=== PATIENT | male | born 2000 | race Caucasian/White ===

== ENCOUNTER 2021-07-30 18:08 | Inpatient (IN) | payer OTHER ==
[~2021-07-30] VITALS: Ht 180.3 cm; Wt 154.2 kg
[2021-07-30 18:45] LABS: HEMOGLOBIN 14.3 gm/dl (14.0-17.5); RED BLOOD COUNT 4.78 M/UL (4.20-5.50); WHITE BLOOD COUNT 29.1 K/UL (4.5-11.0)
[2021-07-30 19:11] LABS: BUN/CREATININE RATIO 8 (0-10)
[2021-07-30 21:13] LABS: BORDETELLA PARAPERTUSSIS Not Detected (Not Detectd); BORDETELLA PERTUSSIS Not Detected (Not Detectd); CHLAMYDIA PNEUMONIAE Not Detected (Not Detectd); CORONAVIRUS HKU1 Not Detected (Not Detectd); CORONAVIRUS NL63 Not Detected (Not Detectd); CORONAVIRUS OC43 Not Detected (Not Detectd); CORONOAVIRUS 229E Not Detected (Not Detectd); HUMAN METAPNEUMOVIRUS Not Detected (Not Detectd); HUMAN RHINOVIRUS/ENTEROVIRUS Not Detected (Not Detectd); INFLUENZA B Not Detected (Not Detectd); MYCOPLASMA PNEUMONIAE Not Detected (Not Detectd); PARAINFLUENZA VIRUS 1 Not Detected (Not Detectd); PARAINFLUENZA VIRUS 2 Not Detected (Not Detectd); PARAINFLUENZA VIRUS 3 Not Detected (Not Detectd); PARAINFLUENZA VIRUS 4 Not Detected (Not Detectd); RESPIRATORY SYNCYTIAL VIRUS Not Detected (Not Detectd)
[2021-07-30 22:10] LABS: INFLUENZA A DETECTED (Not Detectd); SARS-CoV-2 NOT DETECTED (Not Detectd)
[2021-07-31 05:51] LABS: WHITE BLOOD COUNT 24.8 K/UL (4.5-11.0)
[2021-07-31 05:56] LABS: HEMOGLOBIN 12.3 gm/dl (14.0-17.5); RED BLOOD COUNT 4.18 M/UL (4.20-5.50)
[2021-07-31 06:09] LABS: BUN/CREATININE RATIO 9 (0-10)
[2021-08-01] MEDS ORDERED: TAMIFLU 75 MG C75 MG PO (11:56)
[2021-08-01] MEDS ORDERED: AZITHROMYCIN500 MG PO (11:56)
[2021-08-01] MEDS ORDERED: AMOX TR-K CLV1 EAC4 PO (11:56)
== END 2021-08-01 13:46 | disposition home or self-care (01) | DRG 871 ==
LOC: ER1 18:08 → M/S 21:43 → CDU 21:43 → M/S 23:21
PROVIDERS: Nurse Practitioner; ADMIT Internal Medicine
DX: A41.89 Other specified sepsis (principal); J10.00 Influenza due to other identified influenza virus with unspecified type of pneumonia; U07.1 COVID-19; J69.0 Pneumonitis due to inhalation of food and vomit; E87.1 Hypo-osmolality and hyponatremia; Z68.42 Body mass index [BMI] 45.0-49.9, adult; E86.1 Hypovolemia; E87.6 Hypokalemia; F12.10 Cannabis abuse, uncomplicated; E66.9 Obesity, unspecified; I95.9 Hypotension, unspecified; F17.210 Nicotine dependence, cigarettes, uncomplicated; Z91.018 Allergy to other foods; Z82.49 Family history of ischemic heart disease and other diseases of the circulatory system
CPT/HCPCS: 0240U; 36415; 71045; 80053; 80076; 81001; 82150; 82550; 82553; 83036; 83605; 83690; 83735; 84132; 84439; 84443; 84484; 85025; 85027; 85379; 86403; 87040; 87081; 87633; 87880; 93005; 96374; 99285; J0456; J0692; J0696; J1650; J2405; J7030; Q9967

== ENCOUNTER 2021-11-11 21:42 | Emergency (ER) | payer OTHER ==
[~2021-11-11 21:42] MED LIST: AMOX TR-K CLV1 EAC4 PO; AZITHROMYCIN500 MG PO; TAMIFLU 75 MG C75 MG PO
[2021-11-11 22:14] LABS: HEMOGLOBIN 15.7 gm/dl (14.0-17.5); RED BLOOD COUNT 5.12 M/UL (4.20-5.50); WHITE BLOOD COUNT 11.5 K/UL (4.5-11.0)
[2021-11-11 22:48] LABS: BUN/CREATININE RATIO 11 (0-10)
== END 2021-11-12 01:35 | disposition left against medical advice (07) ==
LOC: ER1 21:42
PROVIDERS: Nurse Practitioner
DX: R07.9 Chest pain, unspecified (principal); Z20.822 Contact with and (suspected) exposure to COVID-19
CPT/HCPCS: 71045; 80053; 82550; 82553; 83880; 84484; 85025; 93005; 99283; Q9967; U0002